=== PATIENT | male | born 1955 | race Caucasian/White ===

== ENCOUNTER 2022-03-29 13:34 | Emergency (ER) | payer MEDICARE ==
[~2022-03-29] VITALS: Ht 162.6 cm; Wt 77.3 kg
[~2022-03-29 13:34] MED LIST: LISI40TA13 PO
[2022-03-29 14:11] VITALS: BP_DIAS 82
[2022-03-29] MEDS ORDERED: amLODIPine 5mg tablet PO ONE (15:50)
[2022-03-29] MEDS ORDERED: AMLO5TAB4 PO (15:53)
[2022-03-29] MEDS ORDERED: PANT-47 PO (15:53)
[2022-03-29 16:03] VITALS: BP_SYST 170
[2022-03-30] MEDS ORDERED: pantoprazole 40mg Tablet.DR PO SCH (07:30)
== END 2022-03-29 16:04 | disposition home or self-care (01) ==
LOC: ER 13:35
DX: T18.128A Food in esophagus causing other injury, initial encounter (principal); I10 Essential (primary) hypertension; Z79.899 Other long term (current) drug therapy; X58.XXXA Exposure to other specified factors, initial encounter; Y93.89 Activity, other specified; Y92.89 Other specified places as the place of occurrence of the external cause; Y99.8 Other external cause status
CPT/HCPCS: 99283; 99285

== ENCOUNTER 2022-10-06 18:08 | Emergency (ER) | payer BC, MEDICARE ==
[~2022-10-06] VITALS: Ht 162.6 cm; Wt 78.2 kg
[~2022-10-06 18:08] MED LIST changes: +AMLO5TAB4 PO; +PANT-47 PO
[2022-10-06 18:34] LABS: BASOPHILS # (AUTO) 0.1 X10'3 (0-0.2); EOSINOPHILS # (AUTO) 0.1 X10'3 (0-0.9); EOSINOPHILS % (AUTO) 1.5 % (0-6); HEMATOCRIT 40.9 % (42.0-52.0); HEMOGLOBIN 13.9 g/dl (14.0-17.9); LYMPHOCYTES % (AUTO) 28.7 % (21-51); MEAN CORPUSCULAR HEMOGLOBIN 31.3 PG (27.0-31.0); MEAN CORPUSCULAR HGB CONC 33.9 g/dL (33.0-36.5); MEAN CORPUSCULAR VOLUME 92.1 FL (78-98); MEAN PLATELET VOLUME 6.3 FL (7.4-10.4); MONOCYTES # (AUTO) 0.7 X10'3 (0-0.9); MONOCYTES % (AUTO) 10.4 % (2-12); NEUTROPHILS % (AUTO) 58.4 % (42-75); PLATELET COUNT 516 X10'3 (140-440); RED BLOOD COUNT 4.45 X10'6 (4.70-6.10); RED CELL DISTRIBUTION WIDTH 13.1 % (11.5-14.5); WHITE BLOOD COUNT 6.9 X10'3 (4.5-11.0)
[2022-10-06 18:46] LABS: ALANINE AMINOTRANSFERASE 27 U/L (12-78); ALBUMIN 3.6 G/DL (3.4-5.0); ALBUMIN/GLOBULIN RATIO 0.8 (1.1-1.5); ALKALINE PHOSPHATASE 109 IU/L (46-116); ANION GAP 7 (8-16); ASPARTATE AMINO TRANSFERASE 21 U/L (10-37); BILIRUBIN,TOTAL 0.3 MG/DL (0.1-1.0); BLOOD UREA NITROGEN 30 MG/DL (7-18); BUN/CREATININE RATIO 21.6 (5.4-32.0); CALCIUM 9.5 MG/DL (8.5-10.1); CHLORIDE 102 MMOL/L (99-107); CREATININE 1.39 MG/DL (0.60-1.10); GLUCOSE 136 MG/DL (70-104); MAGNESIUM 2.1 MG/DL (1.5-2.4); POTASSIUM 4.8 MMOL/L (3.5-5.1); SODIUM 137 MMOL/L (135-145); eGFR 51 ML/MIN
[2022-10-06 19:45] LABS: CLARITY,URINE CLEAR (Clear); COLOR,URINE YELLOW (Yellow); GLUCOSE, URINE NEGATIVE (Neg); KETONES,URINE NEGATIVE (Neg); LEUKOCYTE ESTERASE ,URINE TRACE (Neg); NITRITES, URINE NEGATIVE (Neg); OCCULT BLOOD,URINE NEGATIVE (Neg); PH,URINE 6.5 (4.8-8.0); PROTEIN,URINE NEGATIVE (Neg); UROBILINOGEN,URINE 0.2 E.U/dL (0.2-1.0)
[2022-10-06 19:46] LABS: UA COLLECTION TYPE CLN CATCH MIDSTREAM
[2022-10-06 19:55] LABS: BACTERIA,URINE FEW /HPF (Neg); MUCUS STRANDS NONE SEEN /LPF (Neg); RBC,URINE NONE SEEN /HPF (0-2); SQUAMOUS EPITHELIAL CELL,UR NONE SEEN /LPF (FEW)
[2022-10-06] MEDS ORDERED: aspirin 81mg tab.chew PO ONE (20:10)
[2022-10-06 20:51] VITALS: BP 119/70
--- NOTE | 2022-10-06 20:54 | NUR ---
RN NOTIFED FOR GENERAL ASSESSMENT NEEDED.
== END 2022-10-06 20:55 | disposition home or self-care (01) ==
LOC: ER 18:09
DX: R42 Dizziness and giddiness (principal); R07.89 Other chest pain
CPT/HCPCS: 36415; 71045; 80053; 81001; 83605; 83735; 83880; 84145; 84484; 85025; 87040; 87088; 93005; 99285

== ENCOUNTER 2024-05-20 19:15 | Emergency (ER) | payer BC ==
[~2024-05-20] VITALS: Ht 172.7 cm; Wt 73.6 kg
[~2024-05-20 19:15] MED LIST changes: -AMLO5TAB4 PO; +FLO0.4C PO; +LEVO25TA7 PO; +LISI1TAB51 PO; -LISI40TA13 PO
[2024-05-20 19:19] VITALS: BP 121/68; PULSE 107; TEMP 98.1; O2SAT 98
[2024-05-20] MEDS: HYDROcodone/acetaminophen 10/325mg tab PO ONE (20:29)
[2024-05-20] MEDS: ketorolac trometh 15mg/ml vial 15 MG/ML ML IM ONE (20:30)
[2024-05-20 20:43] VITALS: RESP 16
[2024-05-20] MEDS ORDERED: HYDR-3973 PO (20:47)
== END 2024-05-20 21:24 | disposition home or self-care (01) ==
LOC: ER 19:16
DX: S22.42XA Multiple fractures of ribs, left side, initial encounter for closed fracture (principal); I10 Essential (primary) hypertension; Z79.899 Other long term (current) drug therapy; Z98.890 Other specified postprocedural states; W18.39XA Other fall on same level, initial encounter; Y93.89 Activity, other specified; Y92.89 Other specified places as the place of occurrence of the external cause; Y99.8 Other external cause status
CPT/HCPCS: 71045; 71100; 93005; 96372; 99284; J1885

== ENCOUNTER 2024-05-28 11:06 | Emergency (ER) | payer BC ==
[~2024-05-28] VITALS: Ht 167.6 cm; Wt 69.0 kg
[~2024-05-28 11:06] MED LIST changes: +HYDR-3973 PO
[2024-05-28 11:07] VITALS: TEMP 97.5
[2024-05-28] MEDS ORDERED: MELO-102 PO (12:27)
[2024-05-28] MEDS ORDERED: HYDR-3972 PO (12:27)
[2024-05-28] MEDS ORDERED: METH-798 PO (12:27)
[2024-05-28 12:42] VITALS: BP 165/88; PULSE 67; RESP 18; O2SAT 98
== END 2024-05-28 12:43 | disposition home or self-care (01) ==
LOC: ER 11:06
DX: S22.42XA Multiple fractures of ribs, left side, initial encounter for closed fracture (principal); I10 Essential (primary) hypertension; Z79.899 Other long term (current) drug therapy; W01.0XXA Fall on same level from slipping, tripping and stumbling without subsequent striking against object, initial encounter; Y93.89 Activity, other specified; Y92.89 Other specified places as the place of occurrence of the external cause; Y99.8 Other external cause status
CPT/HCPCS: 99283

== ENCOUNTER 2025-02-07 20:14 | Emergency (ER) | payer BC ==
[~2025-02-07] VITALS: Ht 162.6 cm; Wt 72.6 kg
[~2025-02-07 20:14] MED LIST changes: -FLO0.4C PO; -HYDR-3973 PO; +MELO-102 PO; +METH-798 PO; +TAMS-55 PO
--- NOTE | 2025-02-07 21:38 | Physician Documentation ---
History of Present Illness ~ Chief Complaint: Foot pain Stated Complaint: FEET/HIP PAIN Time Seen by MD: 21:05 Primary Medical Doctor: ERIC [facility]YOU[facility] This is a 70-year-old male who presents with bilateral heel pain for the past 10-12 days after he jumped off of a approximately 5 ft high wall landing on his heels, patient reports that he is able to walk and bear weight on his feet though it is painful and has been walking around on his toes. Patient reports that he has been experiencing some increased pain in his posterior legs due to walking around on his toe so much. Reports no other acute symptoms or concerns. Tetanus witin 5 years: Yes Medication Reconciliation Allergies: Coded Allergies: No Known Allergies (Unverified , 02/07/25) Scheduled Levothyroxine Sodium (Levothyroxine Sodium), 50 MCG PO DAILY@07 Lisinopril/Hydrochlorothiazide (Lisinopril-Hctz 20-12.5 mg Tab), 1 TAB PO DAILY, (Reported) Meloxicam (Meloxicam), 1 TAB PO DAILY Methocarbamol (Methocarbamol), 1 TAB PO Q8H Pantoprazole Sodium (PROTONIX tablet), 1 TAB PO DAILY Tamsulosin Hcl* (Flomax*), 1 TAB PO HS, (Reported) Past Medical History Past Medical History: Hypertension, *GI/HEPATOBILIARY*, *MUSCULOSKELETAL* Past Surgical History: orthopedic surgeries Patient History: Patient reports no known family medical history. Alcohol Use: None Drug Use: none Lives with: Family Lives In: Home Occupation: retired Review of Systems ROS Bilateral heel pain as stated above in the HPI, otherwise all systems are reviewed and negative. Physical Exam Vital Signs: Temperature: 98.3, Source: Oral, Heart Rate: 107, Respiratory Rate: 16, BP: 100/56, Pulse Oximetry: 98, Weight: 72.590 Oxygen Flow Rate: 0 Physical Exam VITALS: Reviewed and as above. GENERAL: Alert, nontoxic appearing, no apparent distress. RESPIRATORY: No increased work of breathing, no respiratory distress, speaking in full clear sentences MUSCULOSKELETAL: Bilateral heels tender to palpation, bilateral feet non swollen, no ecchymosis, no deformity, pedal pulses intact SKIN: Warm, dry, intact NEURO: Sensation in feet intact Progress Results/Orders Results/Orders Vital Signs 02/07/25 02/07/25 20:17 21:48 Temp 98.3 98.6 Pulse 107 99 Resp 16 18 B/P (MAP) 100/56 105/55 Pulse Ox 98 99 O2 Flow Rate 0 Medical Decision Making Findings This 70-year-old male presented with approximately 10 days of bilateral heel pain after jumping off an approximately 5 ft high wall, patient was able to walk and bear weight and only he base of heals were tender to palpation otherwise there was no evidence of injury including no swelling, ecchymosis, erythema, deformity and the feet were neurovascularly intact there is indicated. I suspect soft tissue injury or deep contusion to bilateral heels. Plan is to treat with rest, ice, compression, elevation, and for patient to follow up with primary care for re-evaluation. Patient offered crutches to decrease weight- bearing on heels though patient declines crutches as he has crutches at home. Patient is otherwise well-appearing with remaining physical exam benign and reporting no other injuries and no other injuries demonstrated on exam. Patient is appropriate for outpatient follow up. Patient provided home care instructions, return to care precautions which he verbalized understanding of. Foot Diff Dx:Considerations: Include: Abrasion, Arthritis, Cellulitis, Contus ion, DJD, Fracture-metatarsal, Fracture-phalynx, Fracture-tarsal, Gout, Hematoma, Laceration, Neurovascular injury, Sprain Departure Disposition: 01 HOME / SELF CARE / HOMELESS Impression: Primary Impression: Foot pain Qualified Codes: M79.671 - Pain in right foot; M79.672 - Pain in left foot Condition: Improved Discharge Instructions: RICE Therapy for Routine Care of Injuries, [id number] Additional Instructions: You may use [id number] medications such as ibuprofen and Tylenol as directed by [id number] packaging for pain. Please see the attached home care instructions for rest, ice, ice, compression and elevation. You may use crutches as needed to rest your feet. Please follow up with your primary care provider in the next few days. Please return to the emergency department for any new or worsening concerning symptoms. Referrals: NO PRIMARY CARE PROVIDER (PCP) Education Educated: Patient Educated regarding: diagnosis, treatment, prognosis, need for follow up Signature Scribe Signature: No scribe Attestation: The note accurately reflects work and decisions made by me.CARLYLE Neely 02/08/25 01:34 [facility] Feb 07, 2025 21:38
[2025-02-07 21:48] VITALS: BP 105/55; PULSE 99; RESP 18; TEMP 98.6; O2SAT 99
== END 2025-02-07 21:49 | disposition home or self-care (01) ==
LOC: ER 20:15
DX: M79.672 Pain in left foot (principal); M79.671 Pain in right foot; I10 Essential (primary) hypertension; Z79.899 Other long term (current) drug therapy
CPT/HCPCS: 99282